=== PATIENT | female | born 2000 | race Caucasian/White ===

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

== ENCOUNTER 2022-01-01 13:52 | Emergency (ER) | payer OTHER ==
[2022-01-01] MEDS ORDERED: IBUPROFEN 400 MG TAB PO STA (16:44)
[2022-01-01] MEDS ORDERED: ACETAMINOPHEN TAB 325 MG TAB PO STA (16:46)
--- NOTE | 2022-01-01 16:49 | ED ---
URI HPI - General Chief Complaint: Upper Respiratory Infection Stated Complaint: Chest Congestion/Cough Time Seen by Provider: 01/01/22 16:32 Source: patient, RN notes reviewed, old records reviewed Mode of arrival: ambulatory Limitations: no limitations - History of Present Illness Initial Comments: 21-year-old female presents to the emergency room with cough, congestion, fever and chills for 3 days. States that her roommate has been sick for 7 days with similar symptoms. Patient does have a history of asthma and paramyotomia con[place]ia. Patient states uses her albuterol as needed but has not used it today. MD Complaint: fever, cough, nasal congestion -: days(s) (2) Severity scale (1-10): 0 Associated Symptoms: fever, chills, nasal congestion, cough - Related Data Home Medications Medication Instructions Recorded Confirmed Albuterol Nebulized [Ventolin 2.5 mg INHALATION RT-Q4H PRN 05/16/21 05/16/21 Nebulized] Ascorbic Acid [Vitamin C] 500 mg PO DAILY 05/16/21 05/16/21 Cetirizine HCl [Zyrtec] 10 mg PO DAILY 05/16/21 05/16/21 Zinc 50 mg PO DAILY 05/16/21 05/16/21 Previous Rx's Medication Instructions Recorded Albuterol Inhaler [Ventolin Hfa 1 puff INHALATION RT-TID #8 gm 05/16/21 Inhaler] Azithromycin [Zithromax Z-pack (6 0 mg PO DIRECTED 5 Days #6 tab 05/16/21 tabs)] predniSONE [Deltasone] 20 mg PO DAILY 6 Days #6 tab 05/16/21 predniSONE 50 mg PO DAILY #5 tab 06/20/21 predniSONE 50 mg PO DAILY #5 tab 06/20/21 Albuterol Sulfate [Proair Hfa] 2 puff INHALATION RT-Q4H PRN #1 01/01/22 each predniSONE 40 mg PO DAILY #4 tab 01/01/22 Allergies Allergy/AdvReac Type Severity Reaction Status Date / Time No Known Allergies Allergy Verified 01/01/22 14:50 Review of Systems ROS Statement: Those systems with pertinent positive or pertinent negative responses have been documented in the HPI. ROS Other: All systems not noted in ROS Statement are negative. Past Medical History Past Medical History: Asthma Additional Past Medical History / Comment(s): epielephron, pyloric stenosis. 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 History of Any Multi-Drug Resistant Organisms: None Reported Past Surgical History: No Surgical Hx Reported Additional Past Surgical History / Comment(s): eye surgery Past Psychological History: Anxiety Smoking Status: Never smoker Past Alcohol Use History: None Reported Past Drug Use History: None Reported General Exam Limitations: no limitations General appearance: alert, in no apparent distress Head exam: Present: atraumatic, normocephalic Eye exam: Present: normal appearance. Absent: scleral icterus, conjunctival injection, periorbital swelling ENT exam: Present: normal oropharynx, mucous membranes moist Expanded TM/Canal exam: Erythema: Right TM Neck exam: Present: normal inspection, full ROM. Absent: tenderness, meningismus, lymphadenopathy Respiratory exam: Present: wheezes. Absent: respiratory distress, rhonchi, stridor, chest wall tenderness, accessory muscle use Cardiovascular Exam: Present: tachycardia GI/Abdominal exam: Present: soft. Absent: distended, tenderness, rigid Extremities exam: Present: normal inspection, normal capillary refill. Absent: tenderness, pedal edema Neurological exam: Present: alert, oriented X3 Psychiatric exam: Present: normal affect, normal mood Skin exam: Present: warm, dry, normal color. Absent: cyanosis, diaphoretic, petechiae, pallor Course Vital Signs 01/01/22 01/01/22 14:50 18:24 Temperature 98.1 F 98.3 F Pulse Rate 109 H 89 Respiratory 16 18 Rate Blood Pressure 132/88 111/73 O2 Sat by Pulse 97 95 Oximetry Medical Decision Making - Medical Decision Making 21-year-old female presents to the emergency room with fever, congestion and cough for 3 days. Patient states her roommate had similar symptoms last week. Chest x-ray negative, coronavirus and influenza swabs are negative. Patient was given a breathing treatment for wheezing and lung sounds have improved, now clear to auscultation. She was medicated for fever and her temperature is down from 101 to 98. Patient now states was prescribed antibiotics for ear infection at urgent care 2 days ago, directed to continue her medication. She was written a prescription for prednisone and albuterol for her asthma. Directed to follow up with her primary care doctor next week. Case discussed with Dr. Townesnd. - Lab Data Lab Results 01/01/22 01/01/22 Range/Units 16:53 16:53 Coronavirus (PCR) Not Detected (Not Detectd) Influenza Type A RNA Not Detected (Not Detectd) Influenza Type B (PCR) Not Detected (Not Detectd) Disposition Clinical Impression: Fever, Asthmatic bronchitis Disposition: HOME SELF-CARE Condition: Good Instructions (If sedation given, give patient instructions): Upper Respiratory Infection (ED) Additional Instructions: Continue taking the antibiotics as prescribed for you ear infection. Take the prednisone as prescribed for your asthma and use your albuterol inhaler every 4 hours as needed. Return to the emergency room with any new or concerning symptoms. Prescriptions: predniSONE 40 mg PO DAILY #4 tab Albuterol Sulfate [Proair Hfa] 2 puff INHALATION RT-Q4H PRN #1 each PRN Reason: Shortness Of Breath Is patient prescribed a controlled substance at d/c from ED?: No Referrals: Anita Tejada MD [Primary Care Provider] - 1-2 days Time of Disposition: 18:29
--- NOTE | 2022-01-01 17:11 | XR ---
EXAMINATION TYPE: XR chest 2V DATE OF EXAM: 01/01/2022 COMPARISON: 05/16/2021 HISTORY: Cough and fever TECHNIQUE: 2 view FINDINGS: Heart and mediastinum are normal. Lungs are clear. Diaphragm is normal. Bony thorax appears normal. IMPRESSION: Normal chest. No adverse change
[2022-01-01 18:25] VITALS: BP 111/73; PULSE 89; RESP 18; TEMP 98.3
== END 2022-01-01 18:36 | disposition home or self-care (01) ==
LOC: EC 13:52
DX: J45.909 Unspecified asthma, uncomplicated (principal); Z20.822 Contact with and (suspected) exposure to COVID-19; Z79.51 Long term (current) use of inhaled steroids
CPT/HCPCS: 71046; 87502; 87635; 99283

== ENCOUNTER 2022-01-12 21:31 | Emergency (ER) | payer OTHER ==
[2022-01-12 21:37] VITALS: TEMP 98.2
[2022-01-12 23:32] LABS: Basophils # (A) 0.1 k/uL (0-0.2); Basophils % (A) 1 %; Eosinophils # (A) 0.9 k/uL (0-0.7); Eosinophils % (A) 8 %; HCT 37.1 % (34.0-46.0); HGB 11.4 gm/dL (11.4-16.0); Hypochromasia Slight; Lymphocytes # (A) 1.9 k/uL (1.0-4.8); Lymphocytes % (A) 18 %; MCH 25.2 pg (25.0-35.0); MCHC 30.8 g/dL (31.0-37.0); MCV 81.9 fL (80.0-100.0); Mean Platelet Volume 7.2; Monocytes # (A) 0.6 k/uL (0-1.0); Monocytes % (A) 6 %; Neutrophils # (A) 6.9 k/uL (1.3-7.7); Neutrophils % (A) 66 %; Platelet Count 506 k/uL (150-450); RBC 4.54 m/uL (3.80-5.40); RDW 15.9 % (11.5-15.5); WBC 10.5 k/uL (4.0-11.0)
[2022-01-12 23:36] LABS: ALT 24 U/L (4-34); AST 46 U/L (14-36); African American GFR (CKD) >90 (>60 ml/min/1.73 sqM); Alkaline Phosphatase 85 U/L (38-126); Anion Gap 8 mmol/L; Blood Urea Nitrogen 10 mg/dL (7-17); Calcium 9.1 mg/dL (8.4-10.2); Carbon Dioxide 23 mmol/L (22-30); Chloride 106 mmol/L (98-107); Glucose 90 mg/dL (74-99); Non-African American GFR(CKD) >90 (>60 ml/min/1.73 sqM); Potassium 5.2 mmol/L (3.5-5.1); Sodium 137 mmol/L (137-145); Total Bilirubin 0.5 mg/dL (0.2-1.3); Total Protein 7.1 g/dL (6.3-8.2)
[2022-01-12] MEDS ORDERED: SODIUM CHLORIDE 0.9% 1,000 ML IV ONE (23:46)
[2022-01-13 00:22] LABS: INR 0.9 (<1.2); Partial Thromboplastin Time 26.1 sec (22.0-30.0)
--- NOTE | 2022-01-13 00:29 | ED ---
SOB HPI - General Source: patient Mode of arrival: ambulatory Limitations: no limitations <Kassy Mullen - Last Filed: 01/13/22 00:31> <Bubba Grimm - Last Filed: 01/13/22 02:01> - General Chief Complaint: Shortness of Breath Stated Complaint: HAIM - History of Present Illness Initial Comments: 21-year-old female presents emergency Department with chest pain, shortness of breath and cough. Patient seen in the emergency room for similar complaint on the eighth. Chest x-ray, influenza and Covid swabs were performed. She was s tarted on antibiotics, steroids and was using her inhalers and breathing treatments as directed. Reports that she finished all the medications and continues to have worsening symptoms. States that she is now short of breath ambulating across a room. No fevers. No alleviating, precipitating or mo difying factors (Kassy Mullen) - Related Data Home Medications Medication Instructions Recorded Confirmed Albuterol Nebulized [Ventolin 2.5 mg INHALATION RT-Q4H PRN 05/16/21 05/16/21 Nebulized] Ascorbic Acid [Vitamin C] 500 mg PO DAILY 05/16/21 05/16/21 Cetirizine HCl [Zyrtec] 10 mg PO DAILY 05/16/21 05/16/21 Zinc 50 mg PO DAILY 05/16/21 05/16/21 Previous Rx's Medication Instructions Recorded Albuterol Inhaler [Ventolin Hfa 1 puff INHALATION RT-TID #8 gm 05/16/21 Inhaler] Azithromycin [Zithromax Z-pack (6 0 mg PO DIRECTED 5 Days #6 tab 05/16/21 tabs)] predniSONE [Deltasone] 20 mg PO DAILY 6 Days #6 tab 05/16/21 predniSONE 50 mg PO DAILY #5 tab 06/20/21 predniSONE 50 mg PO DAILY #5 tab 06/20/21 Albuterol Sulfate [Proair Hfa] 2 puff INHALATION RT-Q4H PRN #1 01/01/22 each predniSONE 40 mg PO DAILY #4 tab 01/01/22 Allergies Allergy/AdvReac Type Severity Reaction Status Date / Time No Known Allergies Allergy Verified 01/12/22 21:33 Review of Systems ROS Other: All systems not noted in ROS Statement are negative. <Damer,Kassy A - Last Filed: 01/13/22 00:31> ROS Other: All systems not noted in ROS Statement are negative. <Bubba Grimm - Last Filed: 01/13/22 02:01> ROS Statement: Those systems with pertinent positive or pertinent negative responses have been documented in the HPI. Past Medical History Past Medical History: Asthma Additional Past Medical History / Comment(s): epielephron, pyloric stenosis. 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 History of Any Multi-Drug Resistant Organisms: None Reported Past Surgical History: No Surgical Hx Reported Additional Past Surgical History / Comment(s): eye surgery Past Psychological History: Anxiety Smoking Status: Never smoker Past Alcohol Use History: None Reported Past Drug Use History: None Reported <Kassy Mullen - Last Filed: 01/13/22 00:31> General Exam Limitations: no limitations General appearance: alert, in no apparent distress Head exam: Present: atraumatic, normocephalic, normal inspection Eye exam: Present: normal appearance, PERRL, EOMI. Absent: scleral icterus, conjunctival injection, periorbital swelling ENT exam: Present: normal exam, mucous membranes moist Neck exam: Present: normal inspection. Absent: tenderness, meningismus, lymphadenopathy Respiratory exam: Present: normal lung sounds bilaterally. Absent: respiratory distress, wheezes, rales, rhonchi, stridor Cardiovascular Exam: Present: regular rate, normal rhythm, normal heart sounds. Absent: systolic murmur, diastolic murmur, rubs, gallop, clicks GI/Abdominal exam: Present: soft, normal bowel sounds. Absent: distended, tenderness, guarding, rebound, rigid Extremities exam: Present: normal inspection, full ROM, normal capillary refill. Absent: tenderness, pedal edema, joint swelling, calf tenderness Back exam: Present: normal inspection Neurological exam: Present: alert, oriented X3, CN II-XII intact Psychiatric exam: Present: normal affect, normal mood Skin exam: Present: warm, dry, intact, normal color. Absent: rash <Kassy Mullen - Last Filed: 01/13/22 00:31> Course Vital Signs 01/12/22 01/13/22 21:33 01:33 Temperature 98.2 F Pulse Rate 88 108 H Respiratory 16 18 Rate Blood Pressure 134/84 135/92 O2 Sat by Pulse 99 98 Oximetry Medical Decision Making - Lab Data Result diagrams: 01/12/22 23:00 01/12/22 23:00 <Kassy Mullen - Last Filed: 01/13/22 00:31> - Lab Data Result diagrams: 01/12/22 23:00 01/12/22 23:00 <Bubba Grimm - Last Filed: 01/13/22 02:01> - Medical Decision Making Upon arrival patient was placed in room 14. Thorough history and physical exam was performed. IV access established laboratory studies were conducted. D- dimer elevated. CT ordered. Patient with Dr. Grimm. (Kassy Mullen) - Lab Data Lab Results 01/12/22 01/12/22 01/12/22 Range/Units 23:00 23:00 23:00 WBC 10.5 (4.0-11.0) k/uL RBC 4.54 (3.80-5.40) m/uL Hgb 11.4 (11.4-16.0) gm/dL Hct 37.1 (34.0-46.0) % MCV 81.9 (80.0-100.0) fL MCH 25.2 (25.0-35.0) pg MCHC 30.8 L (31.0-37.0) g/dL RDW 15.9 H (11.5-15.5) % Plt Count 506 H (150-450) k/uL MPV 7.2 Neutrophils % 66 % Lymphocytes % 18 % Monocytes % 6 % Eosinophils % 8 % Basophils % 1 % Neutrophils # 6.9 (1.3-7.7) k/uL Lymphocytes # 1.9 (1.0-4.8) k/uL Monocytes # 0.6 (0-1.0) k/uL Eosinophils # 0.9 H (0-0.7) k/uL Basophils # 0.1 (0-0.2) k/uL Hypochromasia Slight PT (9.0-12.0) sec INR (<1.2) APTT (22.0-30.0) sec D-Dimer (<0.60) mg/L FEU Sodium 137 (137-145) mmol/L Potassium 5.2 H (3.5-5.1) mmol/L Chloride 106 (98-107) mmol/L Carbon Dioxide 23 (22-30) mmol/L Anion Gap 8 mmol/L BUN 10 (7-17) mg/dL Creatinine 0.43 L (0.52-1.04) mg/dL Est GFR (CKD-EPI)AfAm >90 (>60 ml/min/1.73 sqM) Est GFR (CKD-EPI)NonAf >90 (>60 ml/min/1.73 sqM) Glucose 90 (74-99) mg/dL Calcium 9.1 (8.4-10.2) mg/dL Total Bilirubin 0.5 (0.2-1.3) mg/dL AST 46 H (14-36) U/L ALT 24 (4-34) U/L Alkaline Phosphatase 85 (38-126) U/L Troponin I <0.012 (0.000-0.034) ng/mL Total Protein 7.1 (6.3-8.2) g/dL Albumin 4.0 (3.5-5.0) g/dL 01/12/22 Range/Units 23:47 WBC (4.0-11.0) k/uL RBC (3.80-5.40) m/uL Hgb (11.4-16.0) gm/dL Hct (34.0-46.0) % MCV (80.0-100.0) fL MCH (25.0-35.0) pg MCHC (31.0-37.0) g/dL RDW (11.5-15.5) % Plt Count (150-450) k/uL MPV Neutrophils % % Lymphocytes % % Monocytes % % Eosinophils % % Basophils % % Neutrophils # (1.3-7.7) k/uL Lymphocytes # (1.0-4.8) k/uL Monocytes # (0-1.0) k/uL Eosinophils # (0-0.7) k/uL Basophils # (0-0.2) k/uL Hypochromasia PT 10.0 (9.0-12.0) sec INR 0.9 (<1.2) APTT 26.1 (22.0-30.0) sec D-Dimer 0.59 (<0.60) mg/L FEU Sodium (137-145) mmol/L Potassium (3.5-5.1) mmol/L Chloride (98-107) mmol/L Carbon Dioxide (22-30) mmol/L Anion Gap mmol/L BUN (7-17) mg/dL Creatinine (0.52-1.04) mg/dL Est GFR (CKD-EPI)AfAm (>60 ml/min/1.73 sqM) Est GFR (CKD-EPI)NonAf (>60 ml/min/1.73 sqM) Glucose (74-99) mg/dL Calcium (8.4-10.2) mg/dL Total Bilirubin (0.2-1.3) mg/dL AST (14-36) U/L ALT (4-34) U/L Alkaline Phosphatase (38-126) U/L Troponin I (0.000-0.034) ng/mL Total Protein (6.3-8.2) g/dL Albumin (3.5-5.0) g/dL - EKG Data EKG Comments: EKG demonstrates sinus rhythm with a rate of 97. PA interval 132. QRS 90. QTc is 382. No acute ST segment elevations or depressions (Kassy Mullen) Disposition <Kassy Mullen - Last Filed: 01/13/22 00:31> Is patient prescribed a controlled substance at d/c from ED?: No <Bubba Grimm - Last Filed: 01/13/22 02:01> Clinical Impression: Community acquired pneumonia Disposition: HOME SELF-CARE Condition: Fair Instructions (If sedation given, give patient instructions): Community Acquired Pneumonia (ED) Referrals: Anita Tejada MD [Primary Care Provider] - 1-2 days
--- NOTE | 2022-01-13 01:23 | CT ---
EXAMINATION TYPE: CT chest angio for PE DATE OF EXAM: 01/13/2022 COMPARISON: None HISTORY: PE CT DLP: 184.8 mGycm Automated exposure control for dose reduction was used. CONTRAST: Performed with IV Contrast, patient injected with 60 mL of Isovue 370. There are Three-D postprocessed images. Images obtained from the thoracic inlet to the diaphragm with the IV contrast. There is no mediastinal adenopathy. Thoracic aorta is intact. No aneurysm or dissection. There is nor mal contrast opacification of the pulmonary arteries. No filling defect. There are no hilar masses. There is airspace consolidation left lower lobe. The right lung is clear. The thoracic spine is intact. No compression fracture. The sternum is intact. IMPRESSION: No evidence of pulmonary embolism. There is dense left lower lobe consolidation consistent with bronc hopneumonia. Normal heart.
[2022-01-13 01:33] VITALS: BP 135/92; PULSE 108
[2022-01-13 01:35] VITALS: RESP 18
[2022-01-13] MEDS ORDERED: cefTRIAXone IN SWFI 1,000 MG/10 ML SYRINGE IVP STA (01:45)
[2022-01-13] MEDS ORDERED: AZITHROMYCIN 500 MG in SODIUM CHLORIDE 0.9% 250 ML IVPB ONE (02:00)
[2022-01-13] MEDS ORDERED: BENZONATATE 100 MG CAP PO STA (02:04)
== END 2022-01-13 03:07 | disposition home or self-care (01) ==
LOC: EC 21:31
DX: J18.9 Pneumonia, unspecified organism (principal); J45.909 Unspecified asthma, uncomplicated
CPT/HCPCS: 36415; 93005; 85379; 80053; 84484; 85025; 85610; 85730; 71275; 99285; 96365; 96375; 96361; J0456; J0696; Q9967

== ENCOUNTER 2022-09-16 20:23 | Emergency (ER) | payer OTHER ==
[2022-09-16 20:48] VITALS: TEMP 99.1
[2022-09-16] MEDS ORDERED: SODIUM CHLORIDE 0.9% 1,000 ML IV STA (21:14)
[2022-09-16] MEDS ORDERED: DEXAMETHASONE SOD PHOSPHATE 10 MG/ML 1 ML VIAL IVP STA (21:14)
--- NOTE | 2022-09-16 21:54 | XR ---
EXAMINATION TYPE: XR chest 2V DATE OF EXAM: 09/16/2022 COMPARISON: 01/01/2022 HISTORY: Difficulty breathing TECHNIQUE: FINDINGS: There is some mild infiltrate in the lingula left upper lobe at the left cardiac border. Th e other lung gregory are clear. Heart and mediastinum are normal. No pleural effusion. Bony thorax is intact. IMPRESSION: There is some lingular pneumonia which appears new compared to old exam. Normal heart.
--- NOTE | 2022-09-16 21:57 | ED ---
SOB HPI - General Chief Complaint: Shortness of Breath Stated Complaint: SOB Time Seen by Provider: 09/16/22 21:09 Source: patient, RN notes reviewed Mode of arrival: ambulatory Limitations: no limitations - History of Present Illness Initial Comments: Patient is a 21-year-old female presenting to the emergency room with complaints of cough, congestion, shortness of breath and occasional fevers all ongoing for approximately 3 days. She does have a has history of asthma and has been utilizing her inhaler without any response for her shortness of breath. 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 She reports that her highest fever over the last 3 days was 101 and is responding to Motrin. She has some generalized body malaise with "pins and needle" kind of feeling without any overt weakness. She denies any chest pain, abdominal pain, nausea, vomiting, diarrhea, or altered mental status. In addition to her asthma history she has a history of pyloric stenosis. - Related Data Home Medications Medication Instructions Recorded Confirmed Albuterol Nebulized [Ventolin 2.5 mg INHALATION RT-Q4H PRN 05/16/21 05/16/21 Nebulized] Ascorbic Acid [Vitamin C] 500 mg PO DAILY 05/16/21 05/16/21 Cetirizine HCl [Zyrtec] 10 mg PO DAILY 05/16/21 05/16/21 Zinc 50 mg PO DAILY 05/16/21 05/16/21 Previous Rx's Medication Instructions Recorded Albuterol Inhaler [Ventolin Hfa 1 puff INHALATION RT-TID #8 gm 05/16/21 Inhaler] Azithromycin [Zithromax Z-pack (6 0 mg PO DIRECTED 5 Days #6 tab 05/16/21 tabs)] predniSONE [Deltasone] 20 mg PO DAILY 6 Days #6 tab 05/16/21 predniSONE 50 mg PO DAILY #5 tab 06/20/21 predniSONE 50 mg PO DAILY #5 tab 06/20/21 Albuterol Sulfate [Proair Hfa] 2 puff INHALATION RT-Q4H PRN #1 01/01/22 each predniSONE 40 mg PO DAILY #4 tab 01/01/22 Albuterol Inhaler [Ventolin Hfa 1 - 2 puff INHALATION RT-Q6H #1 01/13/22 Inhaler] Azithromycin [Zithromax Z Pack] 1 tab PO DIRECTED #6 tab 01/13/22 Benzonatate [Tessalon Perles] 100 mg PO TID PRN #30 capsule 01/13/22 Cefdinir [Omnicef] 300 mg PO Q12HR #14 capsule 01/13/22 Azithromycin [Zithromax Z Pack] 1 tab PO DIRECTED #6 tab 09/16/22 methylPREDNISolone Dose Pack 4 mg PO DIRECTED #21 tab 09/16/22 [Medrol Dose Pack] Allergies Allergy/AdvReac Type Severity Reaction Status Date / Time No Known Allergies Allergy Verified 01/12/22 21:33 Review of Systems ROS Statement: Those systems with pertinent positive or pertinent negative responses have been documented in the HPI. ROS Other: All systems not noted in ROS Statement are negative. Past Medical History Past Medical History: Asthma Additional Past Medical History / Comment(s): epielephron, pyloric stenosis. 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 History of Any Multi-Drug Resistant Organisms: None Reported Past Surgical History: No Surgical Hx Reported Additional Past Surgical History / Comment(s): eye surgery Past Psychological History: Anxiety Smoking Status: Never smoker Past Alcohol Use History: None Reported Past Drug Use History: None Reported General Exam Limitations: no limitations Course Vital Signs 09/16/22 20:43 Temperature 99.1 F Pulse Rate 102 H Respiratory 16 Rate Blood Pressure 128/85 O2 Sat by Pulse 98 Oximetry Medical Decision Making - Medical Decision Making Was pt. sent in by a medical professional or institution ([facility], FLATWORK FINISHER, urgent care, hospital, or correction...) When possible be specific @ -No Did you speak to anyone other than the patient for history (EMS, parent, family, police, friend...)? What history was obtained from this source @ -No Did you review nursing and triage notes (agree or disagree)? Why? @ -I reviewed and agree with nursing and triage notes Were old charts reviewed (outside hosp., previous admission, EMS record, old EKG, old radiological studies, urgent care reports/EKG's, correction records)? Report findings @ -No old charts were reviewed Differential Diagnosis (chest pain, altered mental status, abdominal pain women, abdominal pain men, vaginal bleeding, weakness, fever, dyspnea, syncope, headache, dizziness, GI bleed, back pain, seizure, CVA, palpatations, mental health, musculoskeletal)? @ -Differential Dyspnea: Coronary syndrome, arrhythmia, tamponade, asthma, COPD, pulmonary embolism, pneumonia, pneumothorax, pulmonary effusion, anaphylaxis, diabetic ketoacidosis, flailed chest, pulmonary contusion, diaphragmatic rupture, anemia, marisel romuscular, this is not meant to be an all-inclusive list. EKG interpreted by me (3pts min.). @ -None done X-rays interpreted by me (1pt min.). @ -Chest x-ray two-view: Left upper lobe infiltrate consistent with left upper lobe pneumonia. No lower lobe infiltrate, right lung clear. No pleural effusion. CT interpreted by me (1pt min.). @ -None done U/S interpreted by me (1pt. min.). @ -None done What testing was considered but not performed or refused? (CT, X-rays, U/S, labs)? Why? @ -None What meds were considered but not given or refused? Why? @ -None Did you discuss the management of the patient with other professionals (professionals i.e. , PA, FLATWORK FINISHER, lab, RT, psych nurse, director of social media marketing, wheat farmer, teacher, air antisubmarine officer, comp field case manager)? Give summary @ -No Was smoking cessation discussed for >3mins.? @ -No Was critical care preformed (if so, how long)? @ -No Were there social determinants of health that impacted care today? How? (Homelessness, low income, unemployed, alcoholism, drug addiction, transportation, low edu. Level, literacy, decrease access to med. care, retirement, rehab)? @ -No Was there de-escalation of care discussed even if they declined (Discuss DNR or withdrawal of care, Hospice)? DNR status @ -No What co-morbidities impacted this encounter? (DM, HTN, Smoking, COPD, CAD, Cancer, CVA, ARF, Chemo, Hep., AIDS, mental health diagnosis, sleep apnea, morbid obesity)? @ -Asthma Was patient admitted / discharged? Hospital course, mention meds given and route, prescriptions, significant lab abnormalities, going to OR and other pertinent info. @ -21-year-old female presenting to the emergency room with complaints of cough, congestion, shortness of breath and occasional fevers all ongoing for approximately 3 days. Chest x-ray consistent with left upper lobe pneumonia no pleural effusion. Will start dyspnea workup with chest x-ray, CBC, CMP along with viral swabbing for COVID, RSV and influenza. In the setting of wheeze and asthma history and concern for exposure to COVID will give Decadron rather than Solu-Medrol along with IV fluid bolus. CBC demonstrates leukocytosis with WBC of 14.6 and neutrophils 12.0 CMP with low creatinine 0.51 otherwise no abnormalities electrolytes and liver function normal. Viral swelling for COVID, RSV and Covid all negative. Symptomatology improved after IV Decadron and 1 L fluid bolus. Above findings discussed with patient at length. Advised will need oral antibiotic treatment for pneumonia along with steroid course in the setting of pneumonia with asthma. Encouraged no work for the next 48 hours to allow for adequate rest and medication efficacy prior to returning to work. Encouraged good hydration and use of asthma inhaler as needed for shortness of breath. Questions and concerns answered. Return parameters to the emergency room discussed. Will discharge home in stable condition on oral antibiotic and oral steroid treatment for pneumonia and asthmatic advising follow-up with primary care provider. Undiagnosed new problem with uncertain prognosis? @ -No Drug Therapy requiring intensive monitoring for toxicity (Heparin, Nitro, Insulin, Cardizem)? @ -No Were any procedures done? @ -No Diagnosis/symptom? @ -Left lobe pneumonia with asthma exacerbation Acute, or Chronic, or Acute on Chronic? @ -Acute Uncomplicated (without systemic symptoms) or Complicated (systemic symptoms)? @ -Uncomplicated Side effects of treatment? @ -No Exacerbation, Progression, or Severe Exacerbation? @ -No Poses a threat to life or bodily function? How? (Chest pain, [place], CA, pneumonia, PE, COPD, DKA, ARF, appy, cholecystitis, CVA, Diverticulitis, Homicidal, Suic idal, threat to staff... and all critical care pts) @ -No Case discussed with Dr. Thompson. - Lab Data Result diagrams: 09/16/22 21:39 09/16/22 21:39 Lab Results 09/16/22 09/16/22 09/16/22 Range/Units 21:39 21:39 21:39 WBC 14.6 H (4.0-11.0) k/uL RBC 4.65 (3.80-5.40) m/uL Hgb 12.1 (11.4-16.0) gm/dL Hct 37.0 (34.0-46.0) % MCV 79.5 L (80.0-100.0) fL MCH 26.1 (25.0-35.0) pg MCHC 32.9 (31.0-37.0) g/dL RDW 16.0 H (11.5-15.5) % Plt Count 325 (150-450) k/uL MPV 7.7 Neutrophils % 82 % Lymphocytes % 10 % Monocytes % 4 % Eosinophils % 2 % Basophils % 0 % Neutrophils # 12.0 H (1.3-7.7) k/uL Lymphocytes # 1.5 (1.0-4.8) k/uL Monocytes # 0.6 (0-1.0) k/uL Eosinophils # 0.4 (0-0.7) k/uL Basophils # 0.0 (0-0.2) k/uL Microcytosis Slight Sodium 140 (137-145) mmol/L Potassium 3.9 (3.5-5.1) mmol/L Chloride 105 (98-107) mmol/L Carbon Dioxide 26 (22-30) mmol/L Anion Gap 9 mmol/L BUN 12 (7-17) mg/dL Creatinine 0.51 L (0.52-1.04) mg/dL Est GFR (CKD-EPI)AfAm >90 (>60 ml/min/1.73 sqM) Est GFR (CKD-EPI)NonAf >90 (>60 ml/min/1.73 sqM) Glucose 90 (74-99) mg/dL Calcium 9.4 (8.4-10.2) mg/dL Total Bilirubin 0.4 (0.2-1.3) mg/dL AST 26 (14-36) U/L ALT 20 (4-34) U/L Alkaline Phosphatase 91 (38-126) U/L Total Protein 7.4 (6.3-8.2) g/dL Albumin 4.6 (3.5-5.0) g/dL Influenza Type A (PCR) Not Detected (Not Detectd) Influenza Type B (PCR) Not Detected (Not Detectd) RSV (PCR) Not Detected (Not Detectd) SARS-CoV-2 (PCR) Not Detected (Not Detectd) - Radiology Data Radiology results: report reviewed, image reviewed Disposition Clinical Impression: Pneumonia, Asthma with acute exacerbation Disposition: HOME SELF-CARE Condition: Stable Instructions (If sedation given, give patient instructions): Community Acquired Pneumonia (ED) Additional Instructions: Please complete course of steroid and antibiotic as prescribed. It is recommended that you rest and do not work for the next 48 hours. Continue to use your asthma inhaler as needed for shortness of breath. Please follow-up with your primary care provider. Stay well hydrated. Please return to the Emergency Department if symptoms worsen or any other concerns. Prescriptions: methylPREDNISolone Dose Pack [Medrol Dose Pack] 4 mg PO DIRECTED #21 tab Azithromycin [Zithromax Z Pack] 1 tab PO DIRECTED #6 tab Is patient prescribed a controlled substance at d/c from ED?: No Referrals: Anita Tejada MD [Primary Care Provider] - 1-2 days Time of Disposition: 23:07
[2022-09-16 22:04] LABS: Basophils % (A) 0 %; Eosinophils # (A) 0.4 k/uL (0-0.7); Eosinophils % (A) 2 %; HGB 12.1 gm/dL (11.4-16.0); Lymphocytes # (A) 1.5 k/uL (1.0-4.8); Lymphocytes % (A) 10 %; MCH 26.1 pg (25.0-35.0); MCHC 32.9 g/dL (31.0-37.0); MCV 79.5 fL (80.0-100.0); Mean Platelet Volume 7.7; Microcytosis Slight; Monocytes # (A) 0.6 k/uL (0-1.0); Monocytes % (A) 4 %; Neutrophils % (A) 82 %; Platelet Count 325 k/uL (150-450); RBC 4.65 m/uL (3.80-5.40); WBC 14.6 k/uL (4.0-11.0)
[2022-09-16 22:18] LABS: ALT 20 U/L (4-34); AST 26 U/L (14-36); African American GFR (CKD) >90 (>60 ml/min/1.73 sqM); Albumin 4.6 g/dL (3.5-5.0); Alkaline Phosphatase 91 U/L (38-126); Anion Gap 9 mmol/L; Blood Urea Nitrogen 12 mg/dL (7-17); Calcium 9.4 mg/dL (8.4-10.2); Carbon Dioxide 26 mmol/L (22-30); Chloride 105 mmol/L (98-107); Glucose 90 mg/dL (74-99); Non-African American GFR(CKD) >90 (>60 ml/min/1.73 sqM); Potassium 3.9 mmol/L (3.5-5.1); Sodium 140 mmol/L (137-145); Total Bilirubin 0.4 mg/dL (0.2-1.3); Total Protein 7.4 g/dL (6.3-8.2)
[2022-09-16 23:31] VITALS: BP 134/84; PULSE 100; RESP 18
== END 2022-09-16 23:51 | disposition home or self-care (01) ==
LOC: EC 20:23
DX: J45.901 Unspecified asthma with (acute) exacerbation (principal); J18.9 Pneumonia, unspecified organism; Z20.822 Contact with and (suspected) exposure to COVID-19
CPT/HCPCS: 36415; 80053; 85025; 87636; 71046; 99285; 96374; 96361; J1100

== ENCOUNTER 2023-03-28 21:23 | Emergency (ER) | payer OTHER ==
--- NOTE | 2023-03-28 21:59 | XR ---
EXAMINATION TYPE: XR chest 2V DATE OF EXAM: 03/28/2023 9:54 PM CLINICAL INDICATION:Female, 22 years old with history of cough; COMPARISON: Chest radiographs from 09/16/2022 TECHNIQUE: XR chest 2V Frontal and lateral views of the chest. FINDINGS: Lungs/Pleura: There is no evidence of pleural effusion, focal consolidation, or pneumothorax. Pulmonary vascularity: Unremarkable. Heart/mediastinum: Cardiomediastinal silhouette is unremarkable. Musculoskeletal: No acute osseous pathology. IMPRESSION: No acute cardiopulmonary disease/process.
[2023-03-28] MEDS ORDERED: IBUPROFEN 400 MG TAB PO STA (22:19)
[2023-03-28] MEDS ORDERED: methylPREDNISolone SOD SUCCI 125 MG/2 ML VIAL IM ONE (22:29)
[2023-03-28] MEDS ORDERED: ALBUTEROL NEBULIZED 2.5 MG/3 ML INHALATION STA ×2 (22:29→23:18)
--- NOTE | 2023-03-29 00:17 | ED ---
General Adult HPI - General Chief complaint: Upper Respiratory Infection Stated complaint: Difficulty Breathing Time Seen by Provider: 03/28/23 22:06 Source: patient Mode of arrival: ambulatory Limitations: no limitations - History of Present Illness Initial comments: Patient is a 22-year-old female who presents to the emergency department for upper respiratory symptoms. Patient reports productive cough, congestion, fever for the past couple days. She initially had some throat pain which resolved. She feels short of breath on exertion. No chest pain. Patient has history of asthma states she has exacerbations a couple times a year. No chest pain nausea or vomiting.She has a nebulizer at home but is out of the albuterol. - Related Data Home Medications Medication Instructions Recorded Confirmed Albuterol Nebulized [Ventolin 2.5 mg INHALATION RT-Q4H PRN 05/16/21 05/16/21 Nebulized] Ascorbic Acid [Vitamin C] 500 mg PO DAILY 05/16/21 05/16/21 Cetirizine HCl [Zyrtec] 10 mg PO DAILY 05/16/21 05/16/21 Zinc 50 mg PO DAILY 05/16/21 05/16/21 Previous Rx's Medication Instructions Recorded Albuterol Inhaler [Ventolin Hfa 1 puff INHALATION RT-TID #8 gm 05/16/21 Inhaler] Azithromycin [Zithromax Z-pack (6 0 mg PO DIRECTED 5 Days #6 tab 05/16/21 tabs)] predniSONE [Deltasone] 20 mg PO DAILY 6 Days #6 tab 05/16/21 predniSONE 50 mg PO DAILY #5 tab 06/20/21 predniSONE 50 mg PO DAILY #5 tab 06/20/21 Albuterol Sulfate [Proair Hfa] 2 puff INHALATION RT-Q4H PRN #1 01/01/22 each predniSONE 40 mg PO DAILY #4 tab 01/01/22 Albuterol Inhaler [Ventolin Hfa 1 - 2 puff INHALATION RT-Q6H #1 01/13/22 Inhaler] Azithromycin [Zithromax Z Pack] 1 tab PO DIRECTED #6 tab 01/13/22 Benzonatate [Tessalon Perles] 100 mg PO TID PRN #30 capsule 01/13/22 Cefdinir [Omnicef] 300 mg PO Q12HR #14 capsule 01/13/22 Azithromycin [Zithromax Z Pack] 1 tab PO DIRECTED #6 tab 09/16/22 methylPREDNISolone Dose Pack 4 mg PO DIRECTED #21 tab 09/16/22 [Medrol Dose Pack] Albuterol Nebulized [Ventolin 2.5 mg INHALATION Q4H PRN #75 ml 03/29/23 Nebulized] predniSONE 50 mg PO DAILY #5 tab 03/29/23 Allergies Allergy/AdvReac Type Severity Reaction Status Date / Time No Known Allergies Allergy Verified 03/28/23 21:46 Review of Systems ROS Statement: Those systems with pertinent positive or pertinent negative responses have been documented in the HPI. ROS Other: All systems not noted in ROS Statement are negative. Past Medical History Past Medical History: Asthma Additional Past Medical History / Comment(s): epielephron, pyloric stenosis. 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 History of Any Multi-Drug Resistant Organisms: None Reported Past Surgical History: No Surgical Hx Reported Additional Past Surgical History / Comment(s): eye surgery Past Psychological History: Anxiety Smoking Status: Never smoker Past Alcohol Use History: None Reported Past Drug Use History: None Reported General Exam Limitations: no limitations General appearance: alert Eye exam: Present: normal appearance, PERRL, EOMI. Absent: scleral icterus, conjunctival injection, periorbital swelling Respiratory exam: Present: normal lung sounds bilaterally, wheezes, rhonchi. Absent: respiratory distress, rales, stridor, chest wall tenderness, decreased breath sounds, prolonged expiratory Cardiovascular Exam: Present: regular rate, normal rhythm, normal heart sounds. Absent: systolic murmur, diastolic murmur, rubs, gallop, clicks Neurological exam: Present: alert Psychiatric exam: Present: normal affect, normal mood Skin exam: Present: warm, dry, intact, normal color. Absent: rash Course Vital Signs 03/28/23 03/28/23 03/28/23 21:44 23:02 23:12 Temperature 101 F H Pulse Rate 107 H 87 88 Respiratory 18 Rate Blood Pressure 136/83 O2 Sat by Pulse 97 Oximetry 03/28/23 03/29/23 03/29/23 23:59 00:09 00:41 Temperature 97.5 F L Pulse Rate 86 87 111 H Respiratory 17 Rate Blood Pressure 131/72 O2 Sat by Pulse 96 Oximetry Medical Decision Making - Medical Decision Making Was pt. sent in by a medical professional or institution (Dr., PA, [employer], urgent care, hospital, or residential...) When possible be specific @ -No Did you speak to anyone other than the patient for history (EMS, parent, family, police, friend...)? What history was obtained from this source @ -No Did you review nursing and triage notes (agree or disagree)? Why? @ -I reviewed and agree with nursing and triage notes Were old charts reviewed (outside hosp., previous admission, EMS record, old EKG, old radiological studies, urgent care reports/EKG's, residential records)? Report findings @ -No old charts were reviewed Differential Diagnosis (chest pain, altered mental status, abdominal pain women, abdominal pain men, vaginal bleeding, weakness, fever, dyspnea, syncope, headache, dizziness, GI bleed, back pain, seizure, CVA, palpatations, mental health)? @ -not applicable EKG interpreted by me (3pts min.). @ -As above X-rays interpreted by me (1pt min.). @ -No acute cardiopulmonary process CT interpreted by me (1pt min.). @ -None done U/S interpreted by me (1pt. min.). @ -None done What testing was considered but not performed or refused? (CT, X-rays, U/S, labs)? Why? @ -None What meds were considered but not given or refused? Why? @ -None Did you discuss the management of the patient with other professionals (professionals i.e. [facility], [employer], lab, RT, psych nurse, social insurance adviser, fire extinguisher tester, teacher, public health officer, case planner)? Give summary @ -No Was smoking cessation discussed for >3mins.? @ -No Was critical care preformed (if so, how long)? @ -No Were there social determinants of health that impacted care today? How? (Homelessness, low income, unemployed, alcoholism, drug addiction, transportation, low edu. Level, literacy, decrease access to med. care, half-way, rehab)? @ -No Was there de-escalation of care discussed even if they declined (Discuss DNR or withdrawal of care, Hospice)? DNR status @ -No What co-morbidities impacted this encounter? (DM, HTN, Smoking, COPD, CAD, Cancer, CVA, ARF, Chemo, Hep., AIDS, mental health diagnosis, sleep apnea, morbid obesity)? @ -None Was patient admitted / discharged? Hospital course, mention meds given and route, prescriptions, significant lab abnormalities, going to OR and other pertinent info. @ -22-year-old presenting for upper respiratory symptoms. Patient does have asthma she has wheezing or rhonchi exam. No hypoxia and no evidence of respiratory distress. Vital and strep testing is negative. Patient given Solu- Medrol multiple breathing treatments. X-ray interpreted by myself showing no acute cardiopulmonary process.On reevaluation symptoms and breath sounds are improved patient will be discharged with treatment for asthma exacerbation. Discussed return parameters. Undiagnosed new problem with uncertain prognosis? @ -No Drug Therapy requiring intensive monitoring for toxicity (Heparin, Nitro, Insulin, Cardizem)? @ -No Were any procedures done? @ -No Diagnosis/symptom? @ -Asthma exacerbation Acute, or Chronic, or Acute on Chronic? @ -Acute Uncomplicated (without systemic symptoms) or Complicated (systemic symptoms)? @ -Uncomplicated Side effects of treatment? @ -No Exacerbation, Progression, or Severe Exacerbation? @ -No Poses a threat to life or bodily function? How? (Chest pain, USA, CT, pneumonia, PE, COPD, DKA, ARF, appy, cholecystitis, CVA, Diverticulitis, Homicidal, Suicidal, threat to staff... and all critical care pts) @ -No Dr. Grimm is my attending - Lab Data Lab Results 03/28/23 03/28/23 Range/Units 21:47 22:59 Influenza Type A (PCR) Not Detected (Not Detectd) Influenza Type B (PCR) Not Detected (Not Detectd) RSV (PCR) Not Detected (Not Detectd) SARS-CoV-2 (PCR) Not Detected (Not Detectd) Group A Strep (PCR) NOT DETECTED (Not Detectd) Disposition Clinical Impression: Asthma exacerbation Disposition: HOME SELF-CARE Condition: Good Instructions (If sedation given, give patient instructions): Asthma (ED) Additional Instructions: Do breathing treatments [id number]. Take steroids as directed. Alternate Tylenol and Motrin every 3-4 hours for pain. Follow-up with her primary care provider in one to 2 days. Return to the emergency department if you experience new, concerning, or worsening symptoms. Prescriptions: predniSONE 50 mg PO DAILY #5 tab Albuterol Nebulized [Ventolin Nebulized] 2.5 mg INHALATION Q4H PRN #75 ml PRN Reason: difficulty in breathing Is patient prescribed a controlled substance at d/c from ED?: No Referrals: Anita Tejada MD [Primary Care Provider] - 1-2 days
[2023-03-29 00:44] VITALS: BP 131/72; PULSE 111; RESP 17; TEMP 97.5
== END 2023-03-29 00:42 | disposition home or self-care (01) ==
LOC: EC 21:23
DX: J45.901 Unspecified asthma with (acute) exacerbation (principal); Z86.59 Personal history of other mental and behavioral disorders; Z79.899 Other long term (current) drug therapy; Z20.822 Contact with and (suspected) exposure to COVID-19
CPT/HCPCS: 94640 ×2; 87651; 87636; 71046; 99285; 96372; J2930

== ENCOUNTER 2023-08-20 19:33 | Emergency (ER) | payer OTHER ==
[2023-08-20] MEDS: ACETAMINOPHEN TAB 500 MG TAB PO STA (20:02)
[2023-08-20] MEDS: predniSONE 20 MG TAB PO STA (20:03)
[2023-08-20 20:05] VITALS: RESP 20
--- NOTE | 2023-08-20 20:26 | XR ---
EXAMINATION TYPE: XR chest 2V DATE OF EXAM: 08/20/2023 8:02 PM CLINICAL INDICATION:Female, 22 years old with history of cough; [facility] COMPARISON: Chest radiographs from 03/28/2023 TECHNIQUE: XR chest 2V Frontal and lateral views of the chest. FINDINGS: Lungs/Pleura: There is no evidence of pleural effusion, focal consolidation, or pneumothorax. Pulmonary vascularity: Unremarkable. Heart/mediastinum: Cardiomediastinal silhouette is unremarkable. Musculoskeletal: No acute osseous pathology. Other findings: None IMPRESSION: No acute cardiopulmonary disease/process.
[2023-08-20] MEDS: IPRATROPIUM-ALBUTEROL 3 ML NEB INHALATION STA (20:28)
[2023-08-20] MEDS: AZITHROMYCIN 500 MG TAB PO STA (20:41)
--- NOTE | 2023-08-20 20:41 | ED ---
General Adult HPI - General Chief complaint: Upper Respiratory Infection Stated complaint: sob Time Seen by Provider: 08/20/23 19:39 Source: patient, RN notes reviewed, old records reviewed Mode of arrival: ambulatory Limitations: no limitations - History of Present Illness Initial comments: Patient is a 22-year-old female who presents emergency department complaining of upper respiratory symptoms. Has been having cough, fever, congestion for a few days. Has a history of asthma and believes that is also flaring. Endorses low- grade fever at home. Has not been taking anything for it. Thinks she may have been admitted in the past for her asthma. Presents any other acute complaints at this time. No known sick contacts. No abdominal pain, nausea, vomiting. - Related Data Home Medications Medication Instructions Recorded Confirmed Albuterol Nebulized [Ventolin 2.5 mg INHALATION RT-Q4H PRN 05/16/21 05/16/21 Nebulized] Ascorbic Acid [Vitamin C] 500 mg PO DAILY 05/16/21 05/16/21 Cetirizine HCl [Zyrtec] 10 mg PO DAILY 05/16/21 05/16/21 Zinc 50 mg PO DAILY 05/16/21 05/16/21 Previous Rx's Medication Instructions Recorded Albuterol Inhaler [Ventolin Hfa 1 puff INHALATION RT-TID #8 gm 05/16/21 Inhaler] Azithromycin [Zithromax Z-pack (6 0 mg PO DIRECTED 5 Days #6 tab 05/16/21 tabs)] predniSONE [Deltasone] 20 mg PO DAILY 6 Days #6 tab 05/16/21 predniSONE 50 mg PO DAILY #5 tab 06/20/21 predniSONE 50 mg PO DAILY #5 tab 06/20/21 Albuterol Sulfate [Proair Hfa] 2 puff INHALATION RT-Q4H PRN #1 01/01/22 each predniSONE 40 mg PO DAILY #4 tab 01/01/22 Albuterol Inhaler [Ventolin Hfa 1 - 2 puff INHALATION RT-Q6H #1 01/13/22 Inhaler] Azithromycin [Zithromax Z Pack] 1 tab PO DIRECTED #6 tab 01/13/22 Benzonatate [Tessalon Perles] 100 mg PO TID PRN #30 capsule 01/13/22 Cefdinir [Omnicef] 300 mg PO Q12HR #14 capsule 01/13/22 Azithromycin [Zithromax Z Pack] 1 tab PO DIRECTED #6 tab 09/16/22 methylPREDNISolone Dose Pack 4 mg PO DIRECTED #21 tab 09/16/22 [Medrol Dose Pack] Albuterol Nebulized [Ventolin 2.5 mg INHALATION Q4H PRN #75 ml 03/29/23 Nebulized] predniSONE 50 mg PO DAILY #5 tab 03/29/23 Albuterol Inhaler [Ventolin Hfa 2 puff INHALATION Q6H PRN #1 each 08/20/23 Inhaler] Azithromycin [Zithromax] 250 mg PO DAILY 4 Days #4 tab 08/20/23 predniSONE [Deltasone] 40 mg PO DAILY 5 Days #10 tab 08/20/23 Allergies Allergy/AdvReac Type Severity Reaction Status Date / Time No Known Allergies Allergy Verified 08/20/23 19:39 Review of Systems ROS Statement: Those systems with pertinent positive or pertinent negative responses have been documented in the HPI. Review of Systems: CONST: Endorses fever EYES: Denies blurry vision ENT: Denies nasal congestion C/V: Endorses cough RESP: Denies shortness of breath GI: Denies abdominal pain : Denies dysuria SKIN: Denies rash. MSK: Denies joint pain. NEURO: Denies headache ROS Other: All systems not noted in ROS Statement are negative. Past Medical History Past Medical History: Asthma Additional Past Medical History / Comment(s): epielephron, pyloric stenosis. 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 History of Any Multi-Drug Resistant Organisms: None Reported Past Surgical History: No Surgical Hx Reported Additional Past Surgical History / Comment(s): eye surgery Past Psychological History: Anxiety Smoking Status: Never smoker Past Alcohol Use History: None Reported Past Drug Use History: None Reported General Exam - General Exam Comments Initial Comments: General: Appears in no acute distress. Low-grade fever. HEAD: Normal with no signs of head trauma. EYES: PERRLA, EOMI, conjunctiva normal, no discharge. ENT: Hearing grossly intact, normal oropharynx. RESPIRATORY: Bilateral end expiratory wheezing. No hypoxia.. C/V: Cardiac likely secondary to fever.. S1 and S2 auscultated, peripheral pulses 2+ and intact throughout ABD: Abd is soft, nontender, nondistended EXT: Normal range of motion, no obvious deformity SKIN: No rashes or lesions observed on exposed skin. NEURO: Alert and oriented x 4. Limitations: no limitations Course Vital Signs 08/20/23 08/20/23 08/20/23 19:37 20:29 20:38 Temperature 99.8 F H Pulse Rate 104 H 116 H 120 H Respiratory 20 Rate Blood Pressure 118/77 O2 Sat by Pulse 98 Oximetry 08/20/23 20:53 Temperature 101.5 F H Pulse Rate 114 H Respiratory 20 Rate Blood Pressure 132/71 O2 Sat by Pulse Oximetry Medical Decision Making - Medical Decision Making Was pt. sent in by a medical professional or institution (, [facility], [facility], urgent care, hospital, or longterm...) When possible be specific @ -No Did you speak to anyone other than the patient for history (EMS, parent, family, police, friend...)? What history was obtained from this source @ -No Did you review nursing and triage notes (agree or disagree)? Why? @ -I reviewed and agree with nursing and triage notes Were old charts reviewed (outside hosp., previous admission, EMS record, old EKG, old radiological studies, urgent care reports/EKG's, longterm records)? Report findings @ -Old charts reviewed. Differential Diagnosis (chest pain, altered mental status, abdominal pain women, abdominal pain men, vaginal bleeding, weakness, fever, dyspnea, syncope, headache, dizziness, GI bleed, back pain, seizure, CVA, palpatations, mental health, musculoskeletal)? @ -COVID, flu, RSV, pneumonia, bronchitis, asthma. This list is not all inclusive. EKG interpreted by me (3pts min.). @ -None done X-rays interpreted by me (1pt min.). @ -Chest x-ray negative for any obvious acute cardiopulmonary process. CT interpreted by me (1pt min.). @ -None done U/S interpreted by me (1pt. min.). @ -None done What testing was considered but not performed or refused? (CT, X-rays, U/S, labs)? Why? @ -None What meds were considered but not given or refused? Why? @ -None Did you discuss the management of the patient with other professionals (professionals i.e. , [facility], [employer], lab, RT, psych nurse, web content & social media manager, hair spring cutter, teacher, staff antisubmarine officer, casework manager)? Give summary @ -No Was smoking cessation discussed for >3mins.? @ -No Was critical care preformed (if so, how long)? @ -No Were there social determinants of health that impacted care today? How? (Homelessness, low income, unemployed, alcoholism, drug addiction, transportation, low edu. Level, literacy, decrease access to med. care, longterm, rehab)? @ -No Was there de-escalation of care discussed even if they declined (Discuss DNR or withdrawal of care, Hospice)? DNR status @ -No What co-morbidities impacted this encounter? (DM, HTN, Smoking, COPD, CAD, Cancer, CVA, ARF, Chemo, Hep., AIDS, mental health diagnosis, sleep apnea, morbid obesity)? @ -Asthma Was patient admitted / discharged? Hospital course, mention meds given and route, prescriptions, significant lab abnormalities, going to OR and other pertinent info. @ -Based on the patient's presentation and physical exam, presents with upper respiratory symptoms and asthma exacerbation. Patient will be administered steroids as well as breathing treatment. Viral swabs and chest x-ray will be obtained. Low-grade fever and she will receive Tylenol. Patient in agreement this plan. Viral swabs negative. Chest x-ray shows no obvious infection or pneumonia. On reevaluation, patient is feeling improved and would like to go home. I believe this is reasonable. She will be placed on azithromycin for tracheobronchitis and be discharged home with steroids as well as albuterol inhaler. I will provide the patient with a prescription for azithromycin, prednisone, albuterol inhaler. I instructed the patient to follow up with their PCP in the next 1-3 days.. I explained that the patient should return to the emergency dep artment if they experience any worsening symptoms. Strict return precautions were discussed with the patient. The patient expressed understanding of these instructions. I answered all questions that the patient had. The patient was discharged home in good condition with their prescriptions and follow up information. Undiagnosed new problem with uncertain prognosis? @ -No Drug Therapy requiring intensive monitoring for toxicity (Heparin, Nitro, Insulin, Cardizem)? @ -No Were any procedures done? @ -No Diagnosis/symptom? @ -Asthma, tracheobronchitis Acute, or Chronic, or Acute on Chronic? @ -Acute Uncomplicated (without systemic symptoms) or Complicated (systemic symptoms)? @ -Complicated Side effects of treatment? @ -No Exacerbation, Progression, or Severe Exacerbation? @ -No Poses a threat to life or bodily function? How? (Chest pain, USA, ID, pneumonia, PE, COPD, DKA, ARF, appy, cholecystitis, CVA, Diverticulitis, Homicidal, Suicidal, threat to staff... and all critical care pts) @ -No - Lab Data Lab Results 08/20/23 Range/Units 19:56 Influenza Type A (PCR) Not Detected (Not Detectd) Influenza Type B (PCR) Not Detected (Not Detectd) RSV (PCR) Not Detected (Not Detectd) SARS-CoV-2 (PCR) Not Detected (Not Detectd) Disposition Clinical Impression: Tracheobronchitis, Asthma Disposition: HOME SELF-CARE Condition: Good Instructions (If sedation given, give patient instructions): Asthma (ED), Acute Bronchitis (ED) Prescriptions: predniSONE [Deltasone] 40 mg PO DAILY 5 Days #10 tab Albuterol Inhaler [Ventolin Hfa Inhaler] 2 puff INHALATION Q6H PRN #1 each PRN Reason: Dyspnea Azithromycin [Zithromax] 250 mg PO DAILY 4 Days #4 tab Is patient prescribed a controlled substance at d/c from ED?: No Referrals: None,Stated [Primary Care Provider] - 1-2 days Time of Disposition: 20:42
[2023-08-20] MEDS: IBUPROFEN 800 MG TAB PO STA (20:57)
[2023-08-20 21:02] VITALS: BP 132/71; PULSE 114; TEMP 101.5
== END 2023-08-20 21:09 | disposition home or self-care (01) ==
LOC: EC 19:33
DX: J40 Bronchitis, not specified as acute or chronic (principal); Z86.59 Personal history of other mental and behavioral disorders; Z20.822 Contact with and (suspected) exposure to COVID-19
CPT/HCPCS: 94640; 87636; 71046; 99285; J7512

== ENCOUNTER 2023-09-08 22:27 | Emergency (ER) | payer OTHER ==
[2023-09-08 22:46] VITALS: BP 117/74
--- NOTE | 2023-09-08 22:53 | ED ---
Fever HPI - General Chief Complaint: Fever Stated Complaint: fever Time Seen by Provider: 09/08/23 22:51 Source: patient, RN notes reviewed Mode of arrival: ambulatory Limitations: no limitations - History of Present Illness Initial Comments: Patient is a 22-year-old female presented to the ER with chief complaint of fever. Patient states she spiked a fever last night and has been taking Motrin and Tylenol [id number]. She states the lowest her fever has been is 101. She states she also has been endorsing mild cough, sore throat and congestion. She states that she works at [employer] and may be exposed to many things. Denies any shortness of breath, chest pain, abdominal pain, constipation/diarrhea or peripheral edema. - Related Data Home Medications Medication Instructions Recorded Confirmed Albuterol Nebulized [Ventolin 2.5 mg INHALATION RT-Q4H PRN 05/16/21 05/16/21 Nebulized] Ascorbic Acid [Vitamin C] 500 mg PO DAILY 05/16/21 05/16/21 Cetirizine HCl [Zyrtec] 10 mg PO DAILY 05/16/21 05/16/21 Zinc 50 mg PO DAILY 05/16/21 05/16/21 Previous Rx's Medication Instructions Recorded Albuterol Inhaler [Ventolin Hfa 1 puff INHALATION RT-TID #8 gm 05/16/21 Inhaler] Azithromycin [Zithromax Z-pack (6 0 mg PO DIRECTED 5 Days #6 tab 05/16/21 tabs)] predniSONE [Deltasone] 20 mg PO DAILY 6 Days #6 tab 05/16/21 predniSONE 50 mg PO DAILY #5 tab 06/20/21 predniSONE 50 mg PO DAILY #5 tab 06/20/21 Albuterol Sulfate [Proair Hfa] 2 puff INHALATION RT-Q4H PRN #1 01/01/22 each predniSONE 40 mg PO DAILY #4 tab 01/01/22 Albuterol Inhaler [Ventolin Hfa 1 - 2 puff INHALATION RT-Q6H #1 01/13/22 Inhaler] Azithromycin [Zithromax Z Pack] 1 tab PO DIRECTED #6 tab 01/13/22 Benzonatate [Tessalon Perles] 100 mg PO TID PRN #30 capsule 01/13/22 Cefdinir [Omnicef] 300 mg PO Q12HR #14 capsule 01/13/22 Azithromycin [Zithromax Z Pack] 1 tab PO DIRECTED #6 tab 09/16/22 methylPREDNISolone Dose Pack 4 mg PO DIRECTED #21 tab 09/16/22 [Medrol Dose Pack] Albuterol Nebulized [Ventolin 2.5 mg INHALATION Q4H PRN #75 ml 03/29/23 Nebulized] predniSONE 50 mg PO DAILY #5 tab 03/29/23 Albuterol Inhaler [Ventolin Hfa 2 puff INHALATION Q6H PRN #1 each 08/20/23 Inhaler] Azithromycin [Zithromax] 250 mg PO DAILY 4 Days #4 tab 08/20/23 predniSONE [Deltasone] 40 mg PO DAILY 5 Days #10 tab 08/20/23 Oseltamivir [Tamiflu] 75 mg PO Q12HR #10 cap 09/08/23 Allergies Allergy/AdvReac Type Severity Reaction Status Date / Time No Known Allergies Allergy Verified 09/08/23 22:40 Review of Systems ROS Statement: Those systems with pertinent positive or pertinent negative responses have been documented in the HPI. ROS Other: All systems not noted in ROS Statement are negative. Past Medical History Past Medical History: Asthma Additional Past Medical History / Comment(s): epielephron, pyloric stenosis. 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 History of Any Multi-Drug Resistant Organisms: None Reported Past Surgical History: No Surgical Hx Reported Additional Past Surgical History / Comment(s): eye surgery Past Psychological History: Anxiety Smoking Status: Never smoker Past Alcohol Use History: None Reported Past Drug Use History: None Reported General Exam Limitations: no limitations General appearance: alert, in no apparent distress Head exam: Present: atraumatic, normocephalic, normal inspection Eye exam: Present: normal appearance, PERRL, EOMI. Absent: scleral icterus, conjunctival injection, periorbital swelling ENT exam: Present: normal exam, normal oropharynx, mucous membranes moist, other (Erythematous tympanic membranes bilaterally no drainage.) Neck exam: Present: normal inspection. Absent: tenderness, meningismus, lymphadenopathy Respiratory exam: Present: normal lung sounds bilaterally. Absent: respiratory distress, wheezes, rales, rhonchi, stridor Cardiovascular Exam: Present: normal rhythm, tachycardia, normal heart sounds GI/Abdominal exam: Present: soft, normal bowel sounds. Absent: distended, tenderness, guarding, rebound, rigid Extremities exam: Present: normal inspection, full ROM, normal capillary refill. Absent: tenderness, pedal edema, joint swelling, calf tenderness Neurological exam: Present: alert, oriented X3, CN II-XII intact Psychiatric exam: Present: normal affect, normal mood Skin exam: Present: warm, diaphoretic Course Vital Signs 09/08/23 22:35 Temperature 103.0 F H Pulse Rate 108 H Respiratory 22 Rate Blood Pressure 117/74 O2 Sat by Pulse 100 Oximetry Medical Decision Making - Medical Decision Making Was pt. sent in by a medical professional or institution (, PA, BATCH RECORDS CLERK, urgent care, hospital, or detention...) When possible be specific @ -No Did you speak to anyone other than the patient for history (EMS, parent, family, police, friend...)? What history was obtained from this source @ -No Did you review nursing and triage notes (agree or disagree)? Why? @ -I reviewed and agree with nursing and triage notes Were old charts reviewed (outside hosp., previous admission, EMS record, old EKG, old radiological studies, urgent care reports/EKG's, detention records)? Report findings @ -No old charts were reviewed Differential Diagnosis (chest pain, altered mental status, abdominal pain women, abdominal pain men, vaginal bleeding, weakness, fever, dyspnea, syncope, headache, dizziness, GI bleed, back pain, seizure, CVA, palpatations, mental health, musculoskeletal)? @ -Differential Fever:Pneumonia, viral URI, endocarditis, myocarditis, per icarditis, otitis, sinusitis, peritonsillar Abscess, retropharyngeal Abscess, epiglottitis, peritonitis, appendicitis, Lindsay cystitis, diverticulitis, hepatitis, colitis, UTI, PID, TOA, pyelonephritis, prostatitis, epididymitis, meningitis, encephalitis, pulmonary embolism, CVA, thyroid storm, pancreatitis, adrenal crisis, cavernous sinus thrombosis, this is not meant to be an all- inclusive list. EKG interpreted by me (3pts min.). @ -None X-rays interpreted by me (1pt min.). @ -X-ray interpreted by me negative for acute cardiopulmonary process. CT interpreted by me (1pt min.). @ -None done U/S interpreted by me (1pt. min.). @ -None done What testing was considered but not performed or refused? (CT, X-rays, U/S, labs)? Why? @ -None What meds were considered but not given or refused? Why? @ -Patient refused antiemetic medication. Did you discuss the management of the patient with other professionals (professionals i.e. , PA, BATCH RECORDS CLERK, lab, RT, psych nurse, socially responsible investment adviser, rn faculty, teacher, department of natural resources officer, casework supervisor)? Give summary @ -No Was smoking cessation discussed for >3mins.? @ -No Was critical care preformed (if so, how long)? @ -No Were there social determinants of health that impacted care today? How? (Homelessness, low income, unemployed, alcoholism, drug addiction, transportation, low edu. Level, literacy, decrease access to med. care, [facility], rehab)? @ -No Was there de-escalation of care discussed even if they declined (Discuss DNR or withdrawal of care, Hospice)? DNR status @ -No What co-morbidities impacted this encounter? (DM, HTN, Smoking, COPD, CAD, Can cer, CVA, ARF, Chemo, Hep., AIDS, mental health diagnosis, sleep apnea, morbid obesity)? @ -None Was patient admitted / discharged? Hospital course, mention meds given and route, prescriptions, significant lab abnormalities, going to OR and other pertinent info. @ -Discharge. Patient is a 22-year-old female presented to the ER with chief complaint of fever. History and physical exam completed. Vitals on arrival significant for a temperature of 103 and HR 108, otherwise stable. Patient in no signs of acute distress and nontoxic-appearing. Patient was mildly diaphoretic on exam with bilateral erythema surrounding tympanic membrane's. Lung sounds clear to auscultation bilaterally. Normal heart sounds with tachycardia. Influenza A positive. RSV and COVID-negative. Chest x-ray inter preted by me negative for acute cardiopulmonary process. Patient received by mouth Tylenol with improvement to a fever to 100F. Results discussed with patient, all questions answered. Advised [id number] Tylenol and Motrin every 4-6 hours for fever control. Tamiflu prescribed. Return parameters discussed. Patient discharged stable condition with follow-up to PCP. Expressed understanding and agreement with care plan. Patient discussed with ED attending, Dr. Grimm. Undiagnosed new problem with uncertain prognosis? @ -No Drug Therapy requiring intensive monitoring for toxicity (Heparin, Nitro, Insulin, Cardizem)? @ -No Were any procedures done? @ -No Diagnosis/symptom? @ -Influenza A/viral sinusitis Acute, or Chronic, or Acute on Chronic? @ -Acute Uncomplicated (without systemic symptoms) or Complicated (systemic symptoms)? @ -Uncomplicated Side effects of treatment? @ -No Exacerbation, Progression, or Severe Exacerbation? @ -No Poses a threat to life or bodily function? How? (Chest pain, [place], [place], pneumonia, PE, COPD, DKA, ARF, appy, cholecystitis, CVA, Diverticulitis, Homicidal, Suicidal, threat to staff... and all critical care pts) @ -No - Lab Data Lab Results 09/08/23 Range/Units 22:52 Influenza Type A (PCR) Detected A (Not Detectd) Influenza Type B (PCR) Not Detected (Not Detectd) RSV (PCR) Not Detected (Not Detectd) SARS-CoV-2 (PCR) Not Detected (Not Detectd) - Radiology Data Radiology results: report reviewed, image reviewed Disposition Clinical Impression: Influenza A, Acute viral sinusitis Disposition: HOME SELF-CARE Condition: Stable Instructions (If sedation given, give patient instructions): Fever in Adults (ED), Influenza (ED) Additional Instructions: Continue to alternate [id number] Tylenol and Motrin for fever control. Take Tamiflu for 5 days. Return to the ER for any new or worsening symptoms. Prescriptions: Oseltamivir [Tamiflu] 75 mg PO Q12HR #10 cap Is patient prescribed a controlled substance at d/c from ED?: No Referrals: None,Stated [Primary Care Provider] - 1-2 days Time of Disposition: 23:41
--- NOTE | 2023-09-08 23:04 | XR ---
EXAMINATION TYPE: XR chest 2V DATE OF EXAM: 09/08/2023 COMPARISON: Prior chest x-ray August 20, 2023 HISTORY: Cough. Fever since last night. TECHNIQUE: Frontal and lateral views of the chest are obtained. FINDINGS: There is no suspicious new focal air space opacity, pleural effusion, or pneumothorax seen . The cardiac silhouette size is stable and within normal limits. The osseous structures are intac t. Impression: No acute pulmonary infiltrate. No significant change from prior.
[2023-09-08] MEDS: ACETAMINOPHEN TAB 325 MG TAB PO STA (23:12)
[2023-09-08 23:47] VITALS: PULSE 98; RESP 18; TEMP 100.3
== END 2023-09-08 23:52 | disposition home or self-care (01) ==
LOC: EC 22:27
DX: J10.1 Influenza due to other identified influenza virus with other respiratory manifestations (principal); J01.90 Acute sinusitis, unspecified; J45.909 Unspecified asthma, uncomplicated; Z86.59 Personal history of other mental and behavioral disorders; Z79.899 Other long term (current) drug therapy; Z20.822 Contact with and (suspected) exposure to COVID-19
CPT/HCPCS: 71046; 87636; 99283

== ENCOUNTER 2024-02-03 17:04 | Emergency (ER) | payer OTHER ==
--- NOTE | 2024-03-04 00:07 | XR ---
EXAMINATION TYPE: XR chest 2V DATE OF EXAM: 02/03/2024 COMPARISON: Chest radiographs from 09/08/2023 TECHNIQUE: XR chest 2V Frontal and lateral views of the chest. CLINICAL INDICATION:Female, 23 years old with history of CHEST PAIN; FINDINGS: Lungs/Pleura: There is no evidence of pleural effusion, focal consolidation, or pneumothorax. Pulmonary vascularity: Unremarkable. Heart/mediastinum: Cardiomediastinal silhouette is unremarkable. Musculoskeletal: No acute osseous pathology. IMPRESSION: No acute cardiopulmonary disease/process.
== END 2024-02-03 20:30 | disposition home or self-care (01) ==
LOC: EC 17:04
DX: R07.89 Other chest pain (principal)
CPT/HCPCS: 71046; 93005; 99284